=== PATIENT | male | born 1980 | race Caucasian/White ===

== ENCOUNTER 2023-02-22 22:55 | Observation (INO) | payer OTHER ==
[2023-02-22 23:13] VITALS: BMI 31.1
[2023-02-23 00:47] LABS: BASO % 0.8 % (0-2.0); EOS % 1.8 % (0-4.5); HEMATOCRIT 45.2 % (35.4-49); HEMOGLOBIN 15.8 GM/dL (11.7-16.9); LYMPH % 38.9 % (8-40); MEAN CELL VOLUME 91.4 fl (80-96); MEAN PLT VOLUME 9.4 fl (7.5-11.1); NEUT % 49.5 % (42.8-82.8); PLATELET COUNT 302 10^3/uL (134-434); RBC 4.94 M/mm3 (4.00-5.60); RDW 13.7 % (11.9-15.9)
[2023-02-23 00:54] LABS: CALCIUM 9.4 mg/dL (8.5-10.1)
[2023-02-23 00:55] LABS: ALBUMIN 4.6 g/dl (3.4-5.0); BLOOD UREA NITROGEN 17.4 mg/dL (7-18); MAGNESIUM 2.3 mg/dL (1.8-2.4)
[2023-02-23 00:57] LABS: CREATININE 0.7 mg/dL (0.55-1.3)
[2023-02-23 00:59] LABS: BILIRUBIN,TOTAL 0.6 mg/dL (0.2-1); TOT PROT 7.9 g/dl (6.4-8.2)
[2023-02-23 01:07] LABS: INR 1.03 (0.83-1.09)
[2023-02-23 01:10] LABS: ACTIVATED PTT 31.3 SECONDS (25.2-36.5)
[2023-02-23 04:36] LABS: PH,URINE 5.5 (5.0-8.0); URINE APPEARANCE CLEAR; URINE BILIRUBIN NEGATIVE (NEGATIVE); URINE COLOR YELLOW; URINE GLUCOSE (UA) NEGATIVE (NEGATIVE); URINE KETONE TRACE (NEGATIVE); URINE LEUK ESTERASE NEGATIVE (NEGATIVE); URINE NITRITE NEGATIVE (NEGATIVE); URINE PROTEIN NEGATIVE (NEGATIVE); URINE UROBILINOGEN 0.2 mg/dL (0.2-1.0)
[2023-02-23 04:42] LABS: URINE BARBITURATES NEGATIVE (NEGATIVE); URINE BENZODIAZEPINES NEGATIVE (NEGATIVE)
[2023-02-23 04:43] LABS: COCAINE, UR NEGATIVE (NEGATIVE)
[2023-02-23 05:19] LABS: METHADONE, UR NEGATIVE (NEGATIVE); OPIATES, URI NEGATIVE (NEGATIVE); PHENCYCLIDINE,URINE NEGATIVE (NEGATIVE); URINE AMPHETAMINES NEGATIVE (NEGATIVE)
[2023-02-23 09:22] LABS: BASO % 0.5 % (0-2.0); EOS % 2.1 % (0-4.5); HEMOGLOBIN 15.4 GM/dL (11.7-16.9); LYMPH % 35.6 % (8-40); MCH 32.3 pg (25.7-33.7); MCHC 35.8 g/dl (32.0-35.9); MEAN CELL VOLUME 90.3 fl (80-96); MEAN PLT VOLUME 8.6 fl (7.5-11.1); MONO % 9.5 % (3.8-10.2); NEUT % 52.3 % (42.8-82.8); PLATELET COUNT 259 10^3/uL (134-434); RBC 4.76 M/mm3 (4.00-5.60); RDW 13.2 % (11.9-15.9); WHITE BLOOD COUNT 4.6 K/mm3 (4.0-10.0)
[2023-02-23 09:33] LABS: POTASSIUM 3.8 mmol/L (3.5-5.1)
[2023-02-23 09:44] LABS: BILIRUBIN,TOTAL 0.8 mg/dL (0.2-1)
[2023-02-23 09:48] LABS: PHOSPHOROUS 3.8 mg/dL (2.5-4.9)
[2023-02-23 09:49] LABS: CREATININE 0.7 mg/dL (0.55-1.3)
[2023-02-23 09:55] LABS: ALBUMIN 3.9 g/dl (3.4-5.0); BLOOD UREA NITROGEN 16.7 mg/dL (7-18)
[2023-02-23 09:58] LABS: CALCIUM 8.7 mg/dL (8.5-10.1); MAGNESIUM 2.3 mg/dL (1.8-2.4)
[2023-02-23] MEDS: ENOXAPARIN NA (PORCINE) 40 MG/0.4 ML DISP.SYRIN SQ SCH (09:59)
[2023-02-23 10:31] LABS: HIV INTERPRETATION NEGATIVE (NEGATIVE)
[2023-02-24] MEDS: ENOXAPARIN NA (PORCINE) 40 MG/0.4 ML DISP.SYRIN SQ SCH (10:49)
[2023-02-24 11:53] VITALS: RESP 22
[2023-02-24 14:44] VITALS: BP 110/73; PULSE 69; TEMP 98.7
== END 2023-02-24 15:23 | disposition home or self-care (01) ==
LOC: JER 22:55 → JERBED 02-23 01:54 → UNDOADMOB 02-23 01:54 → INTOOBSV 02-23 01:54 → JERBED 02-23 03:43 → J4W 02-23 03:43 → JERBED 02-23 13:12 → J4W 02-23 13:12
PROVIDERS: ADMIT Internal Medicine; ATTEND Internal Medicine
PROC: 3E023GC Introduction of Other Therapeutic Substance into Muscle, Percutaneous Approach (ICD-10-PCS; principal; 2023-02-23)
DX: I49.8 Other specified cardiac arrhythmias (principal); R20.0 Anesthesia of skin; I10 Essential (primary) hypertension; R00.2 Palpitations; I48.92 Unspecified atrial flutter; R07.89 Other chest pain; E66.8 Other obesity; Z68.31 Body mass index [BMI] 31.0-31.9, adult
CPT/HCPCS: 0241U-QW; 36415; 71046-TC-FY; 76700-TC; 80053; 80061; 80307; 81003; 82172; 82977; 83010; 83036; 83690; 83735; 83883; 84100; 84443; 84460; 84484; 85025; 85610; 85730; 87340; 87389; 93005; 93010; 93306-TC; 96372; 99285-25; G0378